=== PATIENT | female | born 1985 | race Caucasian/White ===

== ENCOUNTER 2022-05-02 09:14 | Outpatient (CLI) | payer BC | END 2022-05-02 09:15 | disposition home or self-care (01) | LOC: CSHRAD 09:14 | PROVIDERS: ATTEND Nurse Practitioner Family | DX: M47.816 Spondylosis without myelopathy or radiculopathy, lumbar region (principal); Z98.890 Other specified postprocedural states | CPT/HCPCS: 72110 ==

== ENCOUNTER 2022-08-28 11:34 | Outpatient (CLI) | payer BC | END 2022-08-28 11:35 | disposition home or self-care (01) | LOC: CSHMRI 11:34 | PROVIDERS: ATTEND Nurse Practitioner Family | DX: M54.12 Radiculopathy, cervical region (principal); M47.812 Spondylosis without myelopathy or radiculopathy, cervical region | CPT/HCPCS: 72141 ==

== ENCOUNTER 2023-08-30 08:30 | Outpatient (CLI) | payer BC | END 2023-08-30 08:31 | disposition home or self-care (01) | LOC: CSHRAD 08:30 | PROVIDERS: ATTEND Neurological Surgery | DX: M47.22 Other spondylosis with radiculopathy, cervical region (principal); Z98.890 Other specified postprocedural states | CPT/HCPCS: 72050 ==